=== PATIENT | male | born 1995 | race Caucasian/White ===

== ENCOUNTER 2019-11-07 23:29 | Emergency (ER) | payer SELFPAY ==
--- NOTE | 2019-11-07 23:47 | ED.PDOC ---
History of Present Illness - General Chief Complaint: Trauma Stated Complaint: I hurt my left shoulder playing softball Time Seen by Provider: 11/07/19 23:41 Source: patient, RN notes reviewed, Vital Signs reviewed Exam Limitations: no limitations - History of Present Illness Initial Comments: Patient is a 24-year-old male with no past medical history who presents the ED for left shoulder pain. States he was playing softball 2 hours prior to arrival and dove and landed on his left shoulder. States he felt a pop in the left shoulder and has had pain since that time. He does have full range of motion, but with pain. Denies hitting head, loss of consciousness, headache, neck pain or back pain or any other injuries. States he took 4 ibuprofen prior to arrival . Allergies/Adverse Reactions: Allergies NO KNOWN ALLERGY Allergy (Verified 10/15/15 13:50) Home Medications: Ambulatory Orders Ibuprofen [Motrin Tab] 600 mg PO Q8H PRN #15 tab 10/15/15 Review of Systems - Review of Systems Constitutional: Denies: chills, fever EENTM: Denies: blurred vision, throat pain Respiratory: Denies: cough, short of breath Cardiology: Denies: chest pain, palpitations, syncope Gastrointestinal/Abdominal: Denies: nausea, vomiting Musculoskeletal: States: see HPI, joint pain Neurological: Denies: headache, paresthesia All other Systems: Reviewed and Negative Past Medical History (General) - Patient Medical History Hx Asthma: No Hx Diabetes: No Hx MRSA: No - Vaccination History Hx Tetanus, Diphtheria Vaccination: Yes - 4 years ago Hx Influenza Vaccination: No Hx Pneumococcal Vaccination: No - Social History Hx Tobacco Use: No Family Medical History - Family History Mother Family History: No Known Living Status: Still Living Physical Exam - Physical Exam General Appearance: Alert, Comfortable, No apparent distress Neck: non-tender, full range of motion, supple Respiratory: chest non-tender, lungs clear, normal breath sounds, no respiratory distress Cardiovascular/Chest: regular rate, rhythm, no murmur Gastrointestinal/Abdominal: non tender, soft, no pulsatile mass Back Exam: no vertebral tenderness Extremity: other - Left shoulder has no deformity or step-off. Has full range of motion with pain. He is tender to palpation over the AC joint area. No mid or proximal clavicular tenderness. He has 2+ radial pulse and 5 out of 5 patient sitter strength. Neurologic: no motor/sensory deficits, alert, normal mood/affect Skin Exam: normal color, warm/dry Progress - Progress Progress: 11/07/19 23:50 Patient presents after left shoulder injury while playing softball. On exam there is no sign of dislocation, but he is tender to palpation over the AC joint. He is neurovascularly intact. Will get imaging to rule out fracture or dislocation. Patient declines pain medication and states he took ibuprofen prior to arrival. 11/08/19 00:08 Imaging shows left AC separation with no dislocation or fracture. He is neurovascularly intact on exam. Will place in sling with limited range of motion and increase activity as tolerated. I have asked him to follow-up with orthopedic surgeon within 1 week for continued outpatient evaluation. Strict return precautions given. - Results/Orders Results/Orders: Left shoulder xray No dislocation or fracture seen. Shows mild AC separation. Read by me. Departure - Departure Clinical Impression: Separation of left acromioclavicular joint Qualifiers: Encounter type: initial encounter Qualified Code(s): S43.102A - Unspecified dislocation of left acromioclavicular joint, initial encounter Time of Disposition: 00:00 Disposition: Discharge to Home or Self Care Condition: Good Departure Forms: ED Discharge - Pt. Copy, Patient Portal Self Enrollment Instructions: DI for Trauma Diet: resume usual diet Activity: other - No lifting above head. Increrase range of mation as tolerated. Referrals: Ji Hernandez MD [Primary Care Provider] - 1-2 Days Max Pineda MD [Active Staff] - 1 Week Home Medications: Ambulatory Orders Ibuprofen [Motrin Tab] 600 mg PO Q8H PRN #15 tab 10/15/15
[2019-11-07 23:51] VITALS: BP 164/92; TEMP 98.7; O2SAT 97
--- NOTE | 2019-11-08 00:17 | RAD ---
EXAM DESCRIPTION: XR Shoulder, Left 2 or More Views CLINICAL HISTORY: 24 years Male injury TECHNIQUE: Two views of the left shoulder COMPARISON: No prior exams provided for comparison. FINDINGS: There is no acute fracture or dislocation. The glenohumeral and acromioclavicular joints are normal. Visualized portions of the left lung are clear. Thoracic scoliosis. IMPRESSION: No acute findings in the left shoulder. Electronically signed by: Magdalene Dangelo MD 11/08/2019 12:16 AM CDT
== END 2019-11-08 00:03 | disposition home or self-care (01) ==
LOC: ER 23:29
DX: S43.102A Unspecified dislocation of left acromioclavicular joint, initial encounter (principal); W19.XXXA Unspecified fall, initial encounter; Y92.9 Unspecified place or not applicable; Y93.64 Activity, baseball